=== PATIENT | female | born 1960 | race Caucasian/White ===

== ENCOUNTER → 2020-10-29 | Outpatient (CLI) | payer BC, OTHER ==
[~2020-10-29] MED LIST: DESLORATADINE5 M1 PO; LEVAQUIN750 MG PO; LEVOXYL125 MCG PO; LOSARTAN-HCTZ1 EAC1 PO; RYBELSUS7 MG PO; SYNJARDY XR PO
== END ==
LOC: KOH-I 10-28 08:30
DX: R10.12 Left upper quadrant pain (principal); K76.0 Fatty (change of) liver, not elsewhere classified
CPT/HCPCS: 76700

== ENCOUNTER → 2020-12-16 | Outpatient (CLI) | payer BC, OTHER | LOC: KOH-I 11:13 | DX: M25.562 Pain in left knee (principal) | CPT/HCPCS: 73562 ==

== ENCOUNTER → 2020-12-30 | Outpatient (CLI) | payer BC | LOC: KOH-I 14:22 | DX: M54.5 Low back pain (principal); M47.816 Spondylosis without myelopathy or radiculopathy, lumbar region; M48.061 Spinal stenosis, lumbar region without neurogenic claudication; M47.817 Spondylosis without myelopathy or radiculopathy, lumbosacral region | CPT/HCPCS: 72148 ==

== ENCOUNTER → 2021-03-08 | Outpatient (CLI) | payer BC | LOC: KOH-I 13:45 | DX: M23.92 Unspecified internal derangement of left knee (principal); S83.412A Sprain of medial collateral ligament of left knee, initial encounter; M22.42 Chondromalacia patellae, left knee | CPT/HCPCS: 73721 ==